=== PATIENT | female | born 1965 | race Caucasian/White ===

== ENCOUNTER 2018-04-13 16:52 | Emergency (ER) | payer OTHER ==
--- NOTE | 2018-04-13 17:21 | EDPHY ---
H & P Stated Complaint: visual changes at 1230 today Time Seen by Provider: 04/13/18 17:06 HPI/ROS: CHIEF COMPLAINT: Blurry vision HISTORY OF PRESENT ILLNESS: Patient is a 52-year-old female who comes to the emergency department complaining of blurry vision that began at 12:30 p.m. This afternoon after exercising. It is in bilateral eyes. She thought that it was her contacts and felt like her eyes were burning slightly. She took her contacts out and the burning improved. She then took a nap and when she woke up her blurry vision was worse. Since then she has washed her face a couple of times and feels like it is improving now. She reports similar symptoms in the past with a history of ocular migraines although those visual changes are typically kalidascope in nature and today is more blurry like she is looking through fog. 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 After this event she was put on daily aspirin but has not been taking it recently. She denies foreign body sensation, pain, discharge or erythema. Severity: Moderate Modifying factors: Improving with time REVIEW OF SYSTEMS: Constitutional: denies: chills, fever, recent illness, recent injury EENTM: See HPI denies:double vision, nose congestion Respiratory: denies: cough, shortness of breath Cardiac: denies: chest pain, irregular heart rate, lightheadedness, palpitations Gastrointestinal/Abdominal: denies: abdominal pain, diarrhea, nausea, vomiting, blood streaked stools Genitourinary: denies: dysuria, frequency, hematuria, pain Musculoskeletal: denies: joint pain, muscle pain Skin: denies: lesions, rash, jaundice, bruising Neurological: denies: headache, numbness, paresthesia, tingling, dizziness, weakness Hematologic/Lymphatic: denies: blood clots, easy bleeding, easy bruising Immunologic/allergic: denies: HIV/AIDS, transplant 10 systems reviewed and negative except as noted EXAM: GENERAL: Well-appearing, well-nourished and in no acute distress. HEAD: Atraumatic, normocephalic. EYES: 20/20 in each eye and 20/20 together. Pupils equal round and reactive to light, extraocular movements intact, sclera anicteric, conjunctiva are normal. Retina not well visualized. ENT: TMs normal, nares patent, oropharynx clear without exudates. Moist mucous membranes. NECK: Normal range of motion, supple without lymphadenopathy or JVD. LUNGS: Breath sounds clear to auscultation bilaterally and equal. No wheezes rales or rhonchi. HEART: Regular rate and rhythm without murmurs, rubs or gallops. ABDOMEN: Soft, nontender, normoactive bowel sounds. No guarding, no rebound. No masses appreciated. BACK: No CVA tenderness, no spinal tenderness, step-offs or deformities EXTREMITIES: Normal range of motion, no pitting or edema. No clubbing or cyanosis. NEUROLOGICAL: Cranial nerves II through XII grossly intact. Normal speech, normal gait. 5/5 strength, normal movement in all extremities, normal sensation , normal reflexes NIH stroke score 0. PSYCH: Normal mood, normal affect. SKIN: Warm, dry, normal turgor, no visible rashes or lesions. Source: Patient, Family Exam Limitations: No limitations - Personal History LMP (Females 10-55): 1-7 Days Ago - Medical/Surgical History Hx Asthma: No Hx Chronic Respiratory Disease: No Hx Diabetes: No Hx Cardiac Disease: No Hx Renal Disease: No Hx Cirrhosis: No Hx Alcoholism: No Hx HIV/AIDS: No Other PMH: Retinal artery occlusion, FACTOR 5 LEIDEN, MIGRAINES, - Family History Significant Family History: No pertinent family hx - Social History Smoking Status: Never smoked Alcohol Use: Sober Drug Use: None Constitutional: Initial Vital Signs Temperature (C) 36.9 C 04/13/18 16:58 Heart Rate 105 H 04/13/18 16:58 Respiratory Rate 20 04/13/18 16:58 Blood Pressure 166/116 H 04/13/18 16:58 O2 Sat (%) 97 04/13/18 16:58 O2 Delivery Mode Room Air Allergies/Adverse Reactions: erythromycin base [Erythromycin Base] Allergy (Verified 05/27/09 13:47) Penicillins Allergy (Verified 05/27/09 13:46) Home Medications: Medication Instructions Recorded ALBUTEROL SULFATE 05/27/09 Aspirin 81mg 05/27/09 Diazepam [Valium 5 MG (*)] 0.5 - 1 tab PO Q6-8PRN PRN #20 tab 05/27/09 oxyCODONE/APAP 5/325 [Percocet] 1 tab PO Q4PRN PRN #15 tab 05/27/09 Medical Decision Making ED Course/Re-evaluation: 5:15 p.m. I spoke with Dr. Ruiz who was on-call for Neurology. He agrees that this is most likely an ocular migraine and that she can follow up in his office tomorrow 3:00 p.m.. He also suggested however that if we could obtain an MRI tonight that this would rule out stroke and she could simply follow up with the [facility]. She would not be a tPA candidate 1st because her symptoms are resolving 2nd because her NIH score is 0. Her vision is actually 20/20 here. I spoke with the patient and recommended that we do this tonight and then we could focus primarily on ocular cause for her symptoms. At this point she began asking about cost. She has insurance that prefers a different hospital system. We discussed options. She and elected to leave [facility]. They are planning to go to [facility]. I did contact [facility] ER to notify them. 5:30 p.m. I spoke with Dr. Delacruz in the ER at [facility]. He will be looking for the patient. I did fill out an EMTALA. 5:45 p.m. the patient has now decided that she does not want to go to another ER and will simply get her blood work here and then follow up with Neurology Dr. Ruiz tomorrow with 3 p.m. as they have offered. 6:20 p.m. the patient's lab work is reassuring. She will follow up with Dr. Ruiz tomorrow as planned. We discussed indications for returning. Her symptoms are essentially resolved at this time. Differential Diagnosis: Partial list of the Differential diagnosis considered include but were not limited to; ocular migraine, TIA, and although unlikely based on the history and physical exam, I also considered []. I discussed these differential diagnoses and the plan with the [patient] as well as the usual and expected course. The [patient understands] that the diagnosis is provisional and that in medicine we are not always correct and that further workup is often warranted. Usual and customary warnings were given. All of the [patient's] questions were answered. The [patient was] instructed to return to the emergency department should the symptoms at all worsen or return, otherwise to followup with the physician as we discussed. - Data Points Laboratory Results: 04/13/18 18:02 POC Sodium 146 mEq/L H mEq/L (135-145) POC Potassium 2.9 mEq/L L mEq/L (3.3-5.0) POC Chloride 103.0 mEq/L mEq/L (97-110) POC Total CO2 25 mEq/L mEq/L (22-31) POC BUN 26 mg/dL H mg/dL (7-23) POC Creatinine 0.9 mg/dL mg/dL (0.6-1.0) POC Glucose 107 mg/dL H mg/dL (70-100) POC Calcium 9.2 mg/dL mg/dL (8.5-10.4) Point of Care Test Results: CBC CBC Collection Date 04/13/18 CBC Collection Time 18:05 WBC 9.6 RBC 4.26 HGB 13.8 HCT 40.0 PLT 299 Neut # 7.1 Neut 73.5 LYMPH # 1.8 LYMPH 19.0 Other WBC # 0.7 Other WBC 7.5 MCV 93.9 Chemistry 04/13/18 18:02 POC Sodium 146 mEq/L H mEq/L (135-145) POC Potassium 2.9 mEq/L L mEq/L (3.3-5.0) POC Chloride 103.0 mEq/L mEq/L (97-110) POC Total CO2 25 mEq/L mEq/L (22-31) POC BUN 26 mg/dL H mg/dL (7-23) POC Creatinine 0.9 mg/dL mg/dL (0.6-1.0) POC Glucose 107 mg/dL H mg/dL (70-100) POC Calcium 9.2 mg/dL mg/dL (8.5-10.4) Departure - Departure Disposition: Home, Routine, Self-Care Clinical Impression: Blurred vision, bilateral Condition: Fair Instructions: Blurred Vision (ED) Additional Instructions: Follow-up with Dr. Ruiz tomorrow 3:00 p.m.. Return to the ER if your symptoms worsen. Referrals: Mel Dennis [Primary Care Provider] - As per Instructions Brenton Ruiz, [Medical Doctor] - 1 day without fail
[2018-04-13 18:31] VITALS: BP 145/97
== END 2018-04-13 18:31 | disposition home or self-care (01) ==
LOC: CED 16:52
DX: H53.8 Other visual disturbances (principal)
CPT/HCPCS: 80048-PO

== ENCOUNTER → 2018-08-06 | Outpatient (CLI) | payer OTHER | LOC: CIMAGING 11:03 | PROVIDERS: ATTEND Family Medicine | DX: I10 Essential (primary) hypertension (principal) | CPT/HCPCS: 71046-PO ==

== ENCOUNTER → 2018-10-28 | Outpatient (CLI) | payer OTHER | LOC: CIMAGING 09:46 ==